=== PATIENT | female | born 1960 ===

== ENCOUNTER 2020-08-12 10:15 | Inpatient (IN) | payer OTHER ==
[~2020-08-12] VITALS: Ht 165.1 cm; Wt 47.6 kg
[2020-08-12] MEDS ORDERED: VITAMIN D310 MCG/1 M PO (14:28)
[2020-08-12] MEDS ORDERED: SUPER B-50 COM1 EACH PO (14:29)
== END 2020-08-20 18:41 | disposition home or self-care (01) | DRG 741 ==
LOC: O/R 08-19 05:20 → SURG 08-19 05:20 → RECOVERY 08-19 07:00 → SURG 08-19 16:16
PROVIDERS: ADMIT Obstetrics & Gynecology Gynecologic Oncology; ATTEND Obstetrics & Gynecology Gynecologic Oncology
PROC: 07BC4ZZ Excision of Pelvis Lymphatic, Percutaneous Endoscopic Approach (ICD-10-PCS; 2020-08-19)
PROC: 0UT2FZZ Resection of Bilateral Ovaries, Via Natural or Artificial Opening With Percutaneous Endoscopic Assistance (ICD-10-PCS; 2020-08-19)
PROC: 0UT7FZZ Resection of Bilateral Fallopian Tubes, Via Natural or Artificial Opening With Percutaneous Endoscopic Assistance (ICD-10-PCS; 2020-08-19)
PROC: 0UT9FZZ Resection of Uterus, Via Natural or Artificial Opening With Percutaneous Endoscopic Assistance (ICD-10-PCS; principal; 2020-08-19 07:00)
DX: C54.1 Malignant neoplasm of endometrium (principal)